=== PATIENT | female | born 1990 | race Caucasian/White ===

== ENCOUNTER 2022-10-05 15:26 | Emergency (ER) | payer OTHER ==
[~2022-10-05] VITALS: Ht 162.6 cm; Wt 58.2 kg
[2022-10-05 15:50] VITALS: BP 124/76; PULSE 85; RESP 18; TEMP 98.9; O2SAT 95
== END 2022-10-05 18:36 | disposition home or self-care (01) ==
LOC: ER 15:27
DX: J02.9 Acute pharyngitis, unspecified (principal)
CPT/HCPCS: 87081; 87880; 99283